=== PATIENT | male | born 1955 | race Caucasian/White ===

== ENCOUNTER 2017-03-25 14:17 | Emergency (ER) | payer OTHER ==
[~2017-03-25] VITALS: Ht 175.3 cm; Wt 179.0 kg
[~2017-03-25 14:17] MED LIST: ASPIR-LOW81 MG PO; BENICAR HCT 401 EAC1 PO; HUMULIN R500 UNITS/ SC; METOPROLOL SUCC25 MG PO; MOTRIN600 MG PO; NIFEDIPINE ER30 MG PO; NORCO 5/3251 TABLET PO; SIMVASTATIN40 MG PO; ULTRAM50 MG PO
[2017-03-25 15:41] LABS: HEMATOCRIT 35.1 % (38.0-50.0); MCH 28.4 PG (29.0-34.0); MCHC 33.6 G/DL (30.0-36.0); MCV 84.6 FL (86-99); RBC DIS.WIDTH-CV 14.9 % (11.8-14.6); RBC DIS.WIDTH-SD 45.9 % (39-53); RED BLOOD COUNT 4.15 M/uL (4.00-5.50); WHITE BLOOD COUNT 5.8 K/uL (4.1-10.2)
[2017-03-25 15:54] LABS: CHLORIDE 101 mEq/L (99-109); POTASSIUM 3.8 mEq/L (3.7-5.4); SODIUM 132 mEq/L (136-147)
[2017-03-25 15:56] LABS: GLUCOSE 166 mg/dL (70-99)
[2017-03-25 15:57] LABS: ANION GAP 10 MEQ/L (2-14)
[2017-03-25 15:58] LABS: TOTAL BILIRUBIN 0.9 mg/dL (0.0-1.0)
[2017-03-25 15:59] LABS: ALKALINE PHOSPHATASE 66 IU/L (3-129)
[2017-03-25 16:00] LABS: GFR ESTIMATE (CALCULATED) > 59 mL/min/
[2017-03-25 16:01] LABS: UREA NITROGEN (BUN) 18 mg/dL (9-23)
[2017-03-25 16:32] LABS: ADD MIUA? YES; BILIRUBIN NEGATIVE; BLOOD MODERATE; COLOR YELLOW ((YELLOW)); GLUCOSE (STRIP) NEGATIVE; KETONES NEGATIVE; LEUKOCYTES NEGATIVE; NITRITE NEGATIVE; PROTEIN (STRIP) 100; SPECIFIC GRAVITY 1.018 (1.000-1.030); UROBILINOGEN 0.2 MG/DL (0.2-1.0)
[2017-03-25 16:43] LABS: BACTERIA RARE /HPF; EPITHELIAL CELLS RARE /HPF; MUCUS TRACE /LPF; RED BLOOD CELLS 0-5 /HPF (0-5); WHITE BLOOD CELLS 0-5 /HPF (0-5)
[2017-03-25 17:04] LABS: EOSINOPHIL (%) 0.2 % (0-5); IMMATURE GRANULOCYTE (%) 0.5 % (0.0-0.7); LYMPHOCYTE COUNT 0.6 K/uL (1.0-2.8); MEAN PLAT.VOLUME 10.5 uM^3 (9.0-12.4); MONOCYTE (%) 4.6 % (3-12); MONOCYTE COUNT 0.3 K/uL (0-0.8); NEUTROPHIL (%) 84.7 % (45-76); PLAT.SUFFICIENCY ADEQUATE; PLATELET COUNT 167 K/uL (156-360)
[2017-03-25] MEDS ORDERED: LEVAQUIN750 MG PO (19:20)
[2017-03-25] MEDS ORDERED: MIRALAX17 GM PO (19:20)
[2017-03-25] MEDS ORDERED: LEVAQUIN500 MG PO (19:25)
[2017-03-25 19:43] VITALS: BP 158/85
[2017-03-26 10:47] LABS: LYME DISEASE SEROLOGY SCREEN NEGATIVE (NEGATIVE)
== END 2017-03-25 19:44 | disposition home or self-care (01) ==
LOC: EME 14:17
PROVIDERS: Emergency Medicine
DX: B34.9 Viral infection, unspecified (principal); K59.00 Constipation, unspecified; E11.9 Type 2 diabetes mellitus without complications; I10 Essential (primary) hypertension; I25.2 Old myocardial infarction; K21.9 Gastro-esophageal reflux disease without esophagitis; Z79.4 Long term (current) use of insulin; Z79.82 Long term (current) use of aspirin
CPT/HCPCS: 71020; 74176; 80053; 81003; 83605; 85025; 86618; 87086; 99281; 99285

== ENCOUNTER → 2017-06-14 | Outpatient (CLI) | payer OTHER ==
[~2017-06-14] VITALS: Ht 175.3 cm; Wt 175.4 kg
[~2017-06-14] MED LIST changes: +LEVAQUIN500 MG PO; +LEVAQUIN750 MG PO; +MIRALAX17 GM PO
[2017-06-14 14:22] LABS: POINT-OF-CARE METER ID UU14107333
[2017-06-14 15:30] LABS: POINT-OF-CARE METER ID UU13113819
== END | disposition home or self-care (01) ==
LOC: AMB 05-25 14:00
PROVIDERS: Specialist
DX: Z12.11 Encounter for screening for malignant neoplasm of colon (principal); D12.3 Benign neoplasm of transverse colon; D12.4 Benign neoplasm of descending colon; K57.30 Diverticulosis of large intestine without perforation or abscess without bleeding; E11.9 Type 2 diabetes mellitus without complications; I10 Essential (primary) hypertension; I25.10 Atherosclerotic heart disease of native coronary artery without angina pectoris; Z95.5 Presence of coronary angioplasty implant and graft; Z79.82 Long term (current) use of aspirin; Z79.4 Long term (current) use of insulin
CPT/HCPCS: 82948; 88305; 93005; J2250